=== PATIENT | male | born 1955 | race Caucasian/White ===

== ENCOUNTER 2023-03-27 09:59 | Day surgery (SDC) | payer MEDICARE, OTHER ==
[2023-03-27] MEDS ORDERED: Iopamidol-M 200 41% 10 ML VIAL FS ONE (10:00)
[2023-03-27] MEDS ORDERED: Sodium Bicarbonate 2.5 MEQ/5 ML VIAL ONE (10:27)
[2023-03-27] MEDS ORDERED: Lidocaine 1% PF 5 ML VIAL ONE ×2 (10:27→11:16)
[2023-03-27 12:43] VITALS: BP 117/83; TEMP 98.3
== END 2023-03-27 12:30 | disposition home or self-care (01) ==
LOC: CSHRAD 09:59
PROVIDERS: ATTEND Neurological Surgery
DX: M48.062 Spinal stenosis, lumbar region with neurogenic claudication (principal)
CPT/HCPCS: 62304; 72132; Q9966